=== PATIENT | male | born 1970 | race Caucasian/White ===

== ENCOUNTER 2019-04-10 08:00 | Emergency (ER) | payer SELFPAY ==
[2019-04-10] MEDS ORDERED: CETIRIZINE 10 MG TABLET PO ONE (08:30)
--- NOTE | 2019-04-10 09:25 | RADIOLOGY REPORT (SQ) ---
EXAM DESCRIPTION: CHEST 2 VIEWS COMPLETED DATE/TIME: 04/10/2019 8:35 am REASON FOR STUDY: cough COMPARISON: 02/25/2010 EXAM PARAMETERS: NUMBER OF VIEWS: two views TECHNIQUE: Digital Frontal and Lateral radiographic views of the chest acquired. RADIATION DOSE: NA LIMITATIONS: none FINDINGS: LUNGS AND PLEURA: No opacities, masses or pneumothorax. No pleural effusion. MEDIASTINUM AND HILAR STRUCTURES: No masses or contour abnormalities. HEART AND VASCULAR STRUCTURES: Heart normal size. No evidence for failure. BONES: No acute findings. HARDWARE: None in the chest. OTHER: No other significant finding. IMPRESSION: NO ACUTE RADIOGRAPHIC FINDING IN THE CHEST. TECHNICAL DOCUMENTATION: JOB ID: [id number] [employer]- All Rights Reserved Reading location - IP/workstation name: [email or web address]
--- NOTE | 2019-04-10 09:53 | ER Document Report ---
HPI - HPI Time Seen by Provider: 04/10/19 08:19 Pain Level: Denies Context: Patient is a 48-year-old male who presents to the emergency department with a chief complaint of a cough. He has had a cough for the past week. Denies any fever, body aches, chills. He admits to having clear rhinorrhea. He states that his throat is sore and states that he has been coughing so much that he is now coughing up blood. States that he thinks it is from coughing a lot. - CONSTITUTIONAL Constitutional: DENIES: Fever, Chills - EENT EENT: REPORTS: Sore Throat, Nasal Drainage-Clear, Congestion. DENIES: Ear Pain - NEURO Neurology: DENIES: Headache, Weakness - CARDIOVASCULAR Cardiovascular: DENIES: Chest pain - RESPIRATORY Respiratory: REPORTS: Coughing - GASTROINTESTINAL Gastrointestinal: DENIES: Abdominal Pain, Nausea, Patient vomiting, Diarrhea - MUSCULOSKELETAL Musculoskeletal: DENIES: Extremity pain - DERM Skin Color: Normal Skin Problems: None Past Medical History - General Information source: Patient - Social History Smoking Status: Current Every Day Smoker Family History: Reviewed & Not Pertinent Patient has suicidal ideation: No Patient has homicidal ideation: No Renal/ Medical History: Denies: Hx Peritoneal Dialysis - Immunizations Hx Diphtheria, Pertussis, Tetanus Vaccination: No Vertical Provider Document - CONSTITUTIONAL Agree With Documented VS: Yes Exam Limitations: No Limitations General Appearance: No Apparent Distress - INFECTION CONTROL TRAVEL OUTSIDE OF THE [place] IN LAST 30 DAYS: No - HEENT HEENT: Atraumatic, Normocephalic, PERRLA, Pharyngeal Erythema. negative: Conjuctival Injection, Pharyngeal Exudate, Pharyngeal Tenderness, Tympanic Membrane Red, Tympanic Membrane Bulging - NECK Neck: Normal Inspection, Supple - RESPIRATORY Respiratory: Breath Sounds Normal, No Respiratory Distress - CARDIOVASCULAR Cardiovascular: Regular Rate, Regular Rhythm Pulses: Normal: Radial - MUSCULOSKELETAL/EXTREMETIES Musculoskeletal/Extremeties: FROM - NEURO Level of Consciousness: Awake, Alert, Appropriate Motor/Sensory: No Motor Deficit, No Sensory Deficit - DERM Integumentary: Warm, Dry, No Rash Course - Re-evaluation Re-evalutation: 04/10/19 09:53 Patient's chest x-ray is negative for any pneumonia. Due to the patient having rhinorrhea, patient will be started on cetirizine and Flonase to help with his symptoms. I suspect his complaints of coughing up blood is due to patient in the back of his throat from coughing so much. I have very low suspicion for a pulmonary emboli. His vital signs are stable. I encouraged the patient to stop smoking. Patient states that he feels better after receiving a dose of cetirizine. The patient will follow up with [facility] as needed. Follow-up precautions were given. Verbal discharge instructions were given to the patient. They verbalized understanding. They are stable for discharge. - Vital Signs Vital signs: Temp Pulse Resp BP Pulse Ox 97.5 F 65 20 131/76 H 98 04/10/19 08:03 04/10/19 08:03 04/10/19 08:03 04/10/19 08:03 04/10/19 08:03 Discharge - Discharge Clinical Impression: Cough Condition: Stable Disposition: HOME, SELF-CARE Additional Instructions: You were seen today in the emergency department for a cough. Your symptoms are most consistent with an upper respiratory viral infection. Please take acetaminophen 1000 mg and ibuprofen 600 mg every 6 hours as needed for any body aches or fever. You have been given cetirizine, medication to help with your runny nose. Take 1 tablet every day while you have symptoms. You have also been given Flonase, medication to help with the inflammation in your nose. Place 1 spray to each nostril twice a day. If you develop a fever greater than 100.4 F while on ibuprofen and acetaminophen, develop shortness of breath, difficulty breathing, or any symptoms that are worrisome to you, please return to the emergency department. Prescriptions: Cetirizine HCl [All Day Allergy] 10 mg PO DAILY #30 tablet Fluticasone Propionate [Flonase Nasal Sherwood 50 Mcg/Sherwood 16 gm] 2 sprays NASL DAILY #1 inhaler Referrals: [facility] [Provider Group] - Follow up as needed
[2019-04-10 10:04] VITALS: BP 130/70
== END 2019-04-10 10:03 | disposition home or self-care (01) ==
LOC: ER 08:00
DX: R05 Cough (principal); J34.89 Other specified disorders of nose and nasal sinuses; F17.200 Nicotine dependence, unspecified, uncomplicated
CPT/HCPCS: 71046; 99283

== ENCOUNTER 2019-06-27 09:31 | Emergency (ER) | payer SELFPAY ==
[2019-06-27] MEDS ORDERED: IBUPROFEN 600 MG TABLET PO ONE (10:33)
[2019-06-27] MEDS ORDERED: ACETAMINOPHEN SOLN 325 MG/10.15 ML UDCUP PO ONE (10:33)
--- NOTE | 2019-06-27 10:33 | ER Document Report ---
HPI - HPI Time Seen by Provider: 06/27/19 10:25 Context: 48-year-old hand dominant male presents the emergency department chief complaint of right shoulder pain x2 weeks that got acutely worse today when he woke up. Patient states that he is unable to abduct his shoulder past 90 degrees without pain. Patient states that he is also getting some numbness and tingling in his arm that starts in the upper trapezius muscle. Patient denies any trauma. Denies any fevers or recent illness, denies IV drug use, denies any acute limb weakness. Past Medical History - Social History Smoking Status: Unknown if Ever Smoked Family History: Reviewed & Not Pertinent Renal/ Medical History: Denies: Hx Peritoneal Dialysis - Immunizations Hx Diphtheria, Pertussis, Tetanus Vaccination: No Vertical Provider Document - CONSTITUTIONAL Notes: PHYSICAL EXAMINATION: Reviewed vital signs and charting by RN GENERAL: Alert, interacts well. No acute distress. HEAD: Normocephalic, atraumatic. EYES: Pupils equal and round. Extraocular movements intact. ENT: Oral mucosa moist, tongue midline. NECK: Full range of motion. Trachea midline. LUNGS: Clear to auscultation bilaterally, no wheezes, rales, or rhonchi. No respiratory distress. HEART: Regular rate and rhythm. No murmur ABDOMEN: soft, non-tender. No distention. Bowel sounds present EXTREMITIES: Moves all 4 extremities spontaneously. Pain with passive abduction of the right shoulder, full range of active and passive motion with shoulder flexion and extension, pain along the bicipital groove with Yergason's test PSYCH: Normal affect, normal mood. SKIN: Warm, dry, normal turgor. No rashes or lesions noted. - INFECTION CONTROL TRAVEL OUTSIDE OF THE [place] IN LAST 30 DAYS: No Course - Re-evaluation Re-evalutation: 06/27/19 10:31 Well-appearing no acute distress we will get a shoulder x-ray to ensure there is no bony abnormalities. In the absence of any bony abnormalities plan is to place him in a sling and provide him follow-up with orthopedics. 06/27/19 11:29 X-ray showed degenerative changes in the AC joint but no acute fracture or dislocation. Patient has been given instructions and strict return precautions. He has been given referral to orthopedics. He is stable for discharge. - Vital Signs Vital signs: Temp Pulse Resp BP Pulse Ox 97.8 F 63 16 115/73 96 06/27/19 09:49 06/27/19 09:49 06/27/19 09:49 06/27/19 09:49 06/27/19 09:49 Discharge - Discharge Clinical Impression: Right shoulder pain Qualifiers: Chronicity: acute Qualified Code(s): M25.511 - Pain in right shoulder Shoulder injury Qualifiers: Encounter type: initial encounter Laterality: right Qualified Code(s): S49.91XA - Unspecified injury of right shoulder and upper arm, initial encounter Condition: Good Disposition: HOME, SELF-CARE Additional Instructions: You were seen in the emergency department this morning for right shoulder pain. Your x-ray did not show any bony abnormalities or dislocations. We have provided with a sling that you can use for comfort. We should still try to do range of motion so she will does not freeze up. I have given you information for the orthopedist pump station operator and you can call him in the next 3 to 5 days if your symptoms do not improve. Please rest as needed, ice the area for 20 minutes at a time every couple of hours, wear the sling for comfort, and you can take ibuprofen 600 mg every 6 hours with food and/or milk or Tylenol 1000 mg for pain. Please return to the emergency department if you are unable to move your shoulder at all, your fingers or hand start to turn blue or purple, or you have any other concerning symptoms. Forms: Return to Work Referrals: ABRAM PIERCE MD [ACTIVE STAFF] - Follow up in 3-5 days
--- NOTE | 2019-06-27 11:27 | RADIOLOGY REPORT (SQ) ---
EXAM DESCRIPTION: SHOULDER RIGHT 2 OR MORE VIEWS COMPLETED DATE/TIME: 06/27/2019 11:01 am REASON FOR STUDY: acute pain COMPARISON: None. NUMBER OF VIEWS: Three views. TECHNIQUE: Internal rotation, external rotation, and Y view images acquired of the right shoulder. LIMITATIONS: None. FINDINGS: MINERALIZATION: Normal. BONES: No acute fracture. No worrisome bone lesions. JOINTS: Degenerative changes in the AC joint with joint space narrowing. Small osteophytes. VISUALIZED LUNGS AND RIBS: No pneumothorax. No rib fracture. SOFT TISSUES: No radiopaque foreign body. OTHER: No other significant finding. IMPRESSION: Degenerative changes in the AC joint. No other significant findings. TECHNICAL DOCUMENTATION: JOB ID: [id number] [employer]- All Rights Reserved Reading location - IP/workstation name: [email or web address]
[2019-06-27 11:57] VITALS: BP 116/60
== END 2019-06-27 11:55 | disposition home or self-care (01) ==
LOC: ER 09:31
DX: S49.91XA Unspecified injury of right shoulder and upper arm, initial encounter (principal); X58.XXXA Exposure to other specified factors, initial encounter
CPT/HCPCS: 99283; 73030; J3490

== ENCOUNTER 2020-06-27 10:54 | Day surgery (SDC) | payer BC ==
[~2020-06-27 10:54] MED LIST: PROPOFOL INJ 200 MG/20 ML VIAL IV ONE
--- NOTE | 2020-06-27 14:50 | Operative Report ---
Operative Report DATE OF SURGERY: 06/27/20 Operative Report: The risk, benefits and alternatives of the procedure including the risk of bleeding, perforation requiring surgery have been explained to the patient in detail and informed consent has been obtained. Patient is taken back to the endoscopy suite and placed in the left, lateral decubital position. Timeout was called. Propofol medication is administered. Rectal examination is done which did not reveal any masses, tears or fissures. An Olympus videoscope was introduced into the patient's rectum. Scope was then carefully advanced all the way to the cecum. Cecum was identified by the usual anatomical landmarks of the ileocecal valve as well as the appendiceal office. Photodocumentation is obtained. Scope was then sequentially pulled back via the various segments of the colon including the ascending colon, back flexure, transverse colon, splenic flexure, descending colon finding to the rectosigmoid portions of the colon. Retroflexion maneuver is performed. The risks benefits and alternatives of the procedure explained to the patient in detail and informed consent is obtained.A GIF Olympus video scope was inserted into the patient's mouth and hypopharynx ,the esophagus is identified intubated and insufflated, the scope was then advanced through the esophagus stomach and duodenum ,retroflexion maneuver is done the esophagus stomach and first and second portions of the duodenum examined PREOPERATIVE DIAGNOSIS: Colorectal cancer screening. Gastroesophageal reflux disease POSTOPERATIVE DIAGNOSIS: Pedunculated sigmoid polyp removed via snare polypectomy at the base of the stalk and retrieved. Internal hemorrhoids. Hiatal hernia. Gastritis status post biopsy OPERATION: Colonoscopy with snare polypectomy. EGD with biopsy SURGEON: WES RICARDO ANESTHESIA: LMAC TISSUE REMOVED OR ALTERED: As noted above. COMPLICATIONS: None. ESTIMATED BLOOD LOSS: None. INTRAOPERATIVE FINDINGS: As noted above. PROCEDURE: Patient tolerated the procedure well. No immediate postprocedure complications are noted. Patient is discharged in good condition. Discharge date 06/27/2020. Discharge diet: Regular. Discharge activity: Regular. 2 to 3-week follow-up to discuss findings. Patient is instructed to call the office or proceed to the emergency room should there be any further problems or questions. Wait on the pathology. 3 to 5-year surveillance colonoscopy depending on the pathology of the polyp.
[2020-06-27 15:20] VITALS: BP 118/65
== END 2020-06-27 15:20 | disposition home or self-care (01) ==
LOC: END 10:54
PROVIDERS: ATTEND Internal Medicine Gastroenterology
DX: K29.50 Unspecified chronic gastritis without bleeding (principal); D12.5 Benign neoplasm of sigmoid colon; K64.8 Other hemorrhoids; K44.9 Diaphragmatic hernia without obstruction or gangrene; K21.9 Gastro-esophageal reflux disease without esophagitis; Z79.899 Other long term (current) drug therapy; Z20.828 Contact with and (suspected) exposure to other viral communicable diseases; F17.200 Nicotine dependence, unspecified, uncomplicated
CPT/HCPCS: 43239; 45385; 88305 ×2; J2704